=== PATIENT | male | born 1980 ===

== ENCOUNTER 2022-07-03 18:53 | Observation (INO) | payer BC ==
[~2022-07-03] VITALS: Ht 168 cm; Wt 71.2 kg
--- NOTE | 2022-07-03 18:59 | ED Integumentary General ---
General Stated Complaint: LEFT ARM SWOLLEN/RED Source: patient Exam Limitations: no limitations (LEENA WOODS APRN) History of Present Illness Date Seen by Provider: Jul 03, 2022 Time Seen by Provider: 18:58 Initial Comments This is a 42-year-old Swedish-speaking male who presented to ER from [facility] for concerns of worsening cellulitis of his left upper extremity. For the past couple days he has been treated outpatient for cellulitis of his left arm, he was prescribed Bactrim twice a day on 07/01/22 with Mupirocin ointment. He had follow-up yesterday and was given a shot of Rocephin as he had persistent erythema and swelling. He was reevaluated today and he had diffuse erythema and swelling throughout his entire arm up to his mid bicep. They referred him to the emergency department for possible admission. He denies any past medical problems, does not take any current medications other than the antibiotics he was recently prescribed. No fever, chills, nausea, vomiting, diarrhea, abdominal pain. (LEENA WOODS APRN) Allergies and Home Medications Allergies Coded Allergies: No Known Drug Allergies (Unverified , 07/03/22) Patient Home Medication List Home Medication List Reviewed: Yes (LEENA WOODS APRN) Mupirocin (Mupirocin) 2 % Oint...g., (Reported) Entered as Reported by: AMANDEEP DESIR on 07/03/221912 Last Action: New Order Naproxen (Naproxen) 500 Mg Tablet, (Reported) Entered as Reported by: AMANDEEP DESIR on 07/03/221912 Last Action: New Order Sulfamethoxazole/Trimethoprim (Sulfamethoxazole-Tmp Susp 200MG/40MG/5ML) 800 Mg- 160 Mg/20 Ml Oral.susp, (Reported) Entered as Reported by: AMANDEEP DESIR on 07/03/221912 Last Action: New Order Review of Systems Review of Systems Constitutional: no symptoms reported EENTM: no symptoms reported Respiratory: no symptoms reported Cardiovascular: no symptoms reported Gastrointestinal: no symptoms reported Genitourinary: no symptoms reported Musculoskeletal: no symptoms reported Psychiatric/Neurological: See HPI Endocrine: No Symptoms Reported Hematologic/Lymphatic: No Symptoms Reported (LEENA WOODS APRN) Physical Exam Vital Signs Vital Signs - First Documented 07/03/22 19:05 Temp 37.9 Pulse 124 Resp 18 B/P (MAP) 146/83 (104) Pulse Ox 98 O2 Delivery Room Air (NATALYA,CATHY K DO) Vital Signs Capillary Refill : (LEENA WOODS APRN) General Appearance: WD/WN, no apparent distress HEENT: PERRL/EOMI, normal ENT inspection, pharynx normal Neck: full range of motion, normal inspection Cardiovascular: regular rate, rhythm, no murmur Respiratory: lungs clear, normal breath sounds, no respiratory distress, no accessory muscle use Gastrointestinal: normal bowel sounds, non tender, soft Extremities: inflammation, swelling, other (diffuse swelling, erythema, and warmth to left upper extremity. Moist desquamation of left elbow, clear drainage ) Neurologic/Psychiatric: no motor/sensory deficits, alert, normal mood/affect, oriented x 3 Skin: normal color, warm/dry Skin Problem Location: upper extremities (LUE) Skin Problem Character: swelling, tenderness, warm Lymphatic: no adenopathy; No axilla node tender (L) (LEENA WOODS APRN) Progress/Results/Core Measures Results/Orders Lab Results Laboratory Tests Test 07/03/22 19:20 07/03/22 19:36 Range/Units White Blood Count 19.3 H 4.3-11.0 10^3/uL Red Blood Count 3.70 L 4.30-5.52 10^6/uL Hemoglobin 11.7 L 13.3-17.7 g/dL Hematocrit 34 L 40-54 % Mean Corpuscular Volume 92 80-99 fL Mean Corpuscular Hemoglobin 32 25-34 pg Mean Corpuscular Hemoglobin Concent 35 32-36 g/dL Red Cell Distribution Width 12.7 10.0-14.5 % Platelet Count 289 130-400 10^3/uL Mean Platelet Volume 10.2 9.0-12.2 fL Immature Granulocyte % (Auto) 3 % Neutrophils (%) (Auto) 76 H 42-75 % Lymphocytes (%) (Auto) 9 L 12-44 % Monocytes (%) (Auto) 11 0-12 % Eosinophils (%) (Auto) 1 0-10 % Basophils (%) (Auto) 0 0-10 % Neutrophils # (Auto) 14.7 H 1.8-7.8 10^3/uL Lymphocytes # (Auto) 1.7 1.0-4.0 10^3/uL Monocytes # (Auto) 2.1 H 0.0-1.0 10^3/uL Eosinophils # (Auto) 0.1 0.0-0.3 10^3/uL Basophils # (Auto) 0.1 0.0-0.1 10^3/uL Immature Granulocyte # (Auto) 0.6 H 0.0-0.1 10^3/uL Neutrophils % (Manual) 81 % Lymphocytes % (Manual) 8 % Monocytes % (Manual) 11 % Blood Morphology Comment NORMAL Prothrombin Time 15.0 H 12.2-14.7 SEC INR Comment 1.1 0.8-1.4 Activated Partial Thromboplast Time 41 H 24-35 SEC Sodium Level 137 135-145 MMOL/L Potassium Level 3.7 3.6-5.0 MMOL/L Chloride Level 104 98-107 MMOL/L Carbon Dioxide Level 17 L 21-32 MMOL/L Anion Gap 16 H 5-14 MMOL/L Blood Urea Nitrogen 8 7-18 MG/DL Creatinine 0.72 0.60-1.30 MG/DL Estimat Glomerular Filtration Rate 118 BUN/Creatinine Ratio 11 Glucose Level 122 H 70-105 MG/DL Lactic Acid Level 0.83 0.50-2.00 MMOL/L Calcium Level 9.4 8.5-10.1 MG/DL Corrected Calcium 9.7 8.5-10.1 MG/DL Total Bilirubin 0.8 0.1-1.0 MG/DL Aspartate Amino Transf (AST/SGOT) 86 H 5-34 U/L Alanine Aminotransferase (ALT/SGPT) 93 H 0-55 U/L Alkaline Phosphatase 167 H 40-136 U/L Total Protein 7.6 6.4-8.2 GM/DL Albumin 3.6 3.2-4.5 GM/DL Urine Opiates Screen NEGATIVE NEGATIVE Urine Oxycodone Screen NEGATIVE NEGATIVE Urine Methadone Screen NEGATIVE NEGATIVE Urine Propoxyphene Screen NEGATIVE NEGATIVE Urine Barbiturates Screen NEGATIVE NEGATIVE Ur Tricyclic Antidepressants Screen NEGATIVE NEGATIVE Urine Phencyclidine Screen NEGATIVE NEGATIVE Urine Amphetamines Screen NEGATIVE NEGATIVE Urine Methamphetamines Screen NEGATIVE NEGATIVE Urine Benzodiazepines Screen POSITIVE H NEGATIVE Urine Cocaine Screen NEGATIVE NEGATIVE Urine Cannabinoids Screen NEGATIVE NEGATIVE Urine Color DARK YELLOW Urine Clarity CLEAR Urine pH 6.0 5-9 Urine Specific [place] 1.025 H 1.016-1.022 Urine Protein 2+ H NEGATIVE Urine Glucose (UA) TRACE H NEGATIVE Urine Ketones NEGATIVE NEGATIVE Urine Nitrite NEGATIVE NEGATIVE Urine Bilirubin 1+ H NEGATIVE Urine Urobilinogen >=8.0 < = 1.0 MG/DL Urine Leukocyte Esterase NEGATIVE NEGATIVE Urine RBC (Auto) 1+ H NEGATIVE Urine RBC NONE /HPF Urine WBC 0-2 /HPF Urine Squamous Epithelial Cells NONE /HPF Urine Renal Epithelial Cells NONE /HPF Urine Crystals NONE /LPF Urine Bacteria NEGATIVE /HPF Urine Casts NONE /LPF Urine Mucus NEGATIVE /LPF Urine Culture Indicated CULTURE PENDING Serum Alcohol < 10 <10 MG/DL (CATHY HOANG DO) Micro Results Microbiology 07/03/22 Blood Culture - Preliminary, Resulted No growth 07/03/22 Urine Culture - Final, Complete NO GROWTH 07/03/22 Blood Culture - Preliminary, Resulted No growth (CATHY HOANG DO) Vital Signs/I&O 07/03/22 19:05 Temp 37.9 Pulse 124 Resp 18 B/P (MAP) 146/83 (104) Pulse Ox 98 O2 Delivery Room Air 07/04/22 00:00 Intake Total 100 ml Balance 100 ml (CATHY HOANG DO) Progress Progress Note : Progress Note Patient examined in no acute distress. Initiated sepsis work-up upon arrival. His vital signs are stable. Has been on Bactrim and Rocephin, orders placed for Vancomycin and Zosyn IV. WBC-19.3, lactic within normal limits. Discussed with Dr. Reese, would like surgical consult, admit inpatient for IV antibiotics. Discussed with Dr. Loyd, no further orders. Plan of care reviewed with patient and he is agreeable with plan. (LEENA WOODS STRAP CUTTER) Initial ECG Impression Date: Jul 03, 2022 Initial ECG Impression Time: 19:31 Initial ECG Rate: 117 Initial ECG Rhythm: S.Tach Initial ECG Impression: Normal Initial ECG Comparisson: No Previous ECG Available (LEENA WOODS STRAP CUTTER) Diagnostic Imaging Diagonstic Imaging: Xray Plain Films/CT/US/NM/MRI: chest Comments [facility] [place], [place] NAME: ORALIA ZARATE [facility] REC#: [id number] PT STATUS: REG ER : 1980 PHYSICIAN: LEENA WOODS STRAP CUTTER ADMIT DATE: 07/03/22/ER Draft Date of Exam:07/03/22 CHEST 1 VIEW, AP/PA ONLY INDICATION: Sepsis. EXAMINATION: Chest, 07/03/2022. FINDINGS: The cardiomediastinal silhouette is unremarkable. The pulmonary vasculature is within normal limits. The lungs and pleural spaces are clear. IMPRESSION: No evidence of an acute cardiopulmonary process. Dictated on workstation # [id number] Dict: 07/03/222022 Trans: 07/03/222027 PJ [id number] Interpreted by: AMRCO A SALCEDO MD Electronically signed by: DiaZeolifenstic Imaging: Xray Comments [facility] [place] [place] [facility] [id number] PT STATUS: ADM IN : 1980 PHYSICIAN: LEENA WOODS STRAP CUTTER ADMIT DATE: 07/03/22/[facility] Draft Date of Exam:07/03/22 FOREARM, LEFT, 2 VIEWS INDICATION: Redness and swelling. EXAMINATION: Left forearm, 07/03/2022. FINDINGS: 2 views of the forearm. There is soft tissue swelling about the posterior elbow. No joint effusion. No fracture or dislocation. No destructive change within the osseous structures. IMPRESSION: Soft tissue swelling of posterior elbow. Osseous structures unremarkable. Dictated on workstation # [id number] Dict: 07/03/222124 Trans: 07/03/222128 [facility] [id number] Interpreted by: MARCO A SALCEDO MD Electronically signed by: Diagonstic Imaging: Xray Comments [facility] [place], [place] NAME[facility] REC#: [id number] PT STATUS: REG ER : 1980 PHYSICIAN: LEENA WOODS STRAP CUTTER ADMIT DATE: 07/03/22/ER Draft Date of Exam:07/03/22 HUMERUS, LEFT, 2 VIEWS INDICATION: Redness and swelling. EXAMINATION: Left humerus, 07/03/2022. FINDINGS: 2 views of the humerus. There is no evidence for an acute fracture or dislocation. The joint spaces are well maintained. There is no significant soft tissue swelling. IMPRESSION: No acute process. Dictated on workstation # [id number] Dict: 07/03/222122 Trans: 07/03/222124 [facility] [id number] Interpreted by: MARCO A SALCEDO MD Electronically signed by: Reviewed: Reviewed by Me (LEENA WOODS APRN) Departure Communication (Admissions) Time/Spoke to Admitting Phy: 20:12 Dr. Reese Time/Spoke to Consulting Phy: 20:21 Dr. Loyd (LEENA WOODS APRN) Impression Primary Impression: Cellulitis of left arm Disposition: ADMITTED INPATIENT Condition: Stable Admissions Decision to Admit Reason: Admit from ER (General) Decision to Admit/Date: Jul 03, 2022 Time/Decision to Admit Time: 20:00 (LEENA WOODS APRN) Departure-Patient Inst. Referrals: [facility] (PCP/Family) Primary Care Physician ATTENDING PHYSICIAN NOTE: I WAS PHYSICALLY PRESENT ER PHYSICIAN, BUT I WAS NOT INVOLVED IN ANY DECISION MAKING OR ANY CARE OF THIS PATIENT, AND I AM NOT COLLABORATING PHYSICIAN. (CATHY HOANG DO) LEENA WOODS APRN Jul 03, 2022 18:58 CATHY HOANG DO Jul 04, 2022 19:00
[2022-07-03] MEDS ORDERED: SULF20OR6 (19:13)
[2022-07-03] MEDS ORDERED: NAPR-915 PO (19:13)
[2022-07-03] MEDS ORDERED: MUPI22OI2 TOP (19:13)
[2022-07-03] MEDS ORDERED: VANCOMYCIN INJECTION 1,000 MG in NS (IVPB) 250 ML IV ONE (19:30)
[2022-07-03] MEDS ORDERED: PIPERACILLIN SODIUM/TAZOBACTAM 4.5 GM in NS (IVPB) 100 ML IV ONE (19:30)
[2022-07-03 19:41] LABS: BASOPHILS # (AUTO) 0.1 10^3/uL (0.0-0.1); BASOPHILS % (AUTO) 0 % (0-10); EOSINOPHILS # (AUTO) 0.1 10^3/uL (0.0-0.3); EOSINOPHILS % (AUTO) 1 % (0-10); HEMATOCRIT 34 % (40-54); HEMOGLOBIN 11.7 g/dL (13.3-17.7); LYMPHOCYTES # (AUTO) 1.7 10^3/uL (1.0-4.0); LYMPHOCYTES % (AUTO) 9 % (12-44); MEAN CORPUSCULAR HEMOGLOBIN 32 pg (25-34); MEAN CORPUSCULAR HGB CONC 35 g/dL (32-36); MEAN CORPUSCULAR VOLUME 92 fL (80-99); MEAN PLATELET VOLUME 10.2 fL (9.0-12.2); MONOCYTES # (AUTO) 2.1 10^3/uL (0.0-1.0); MONOCYTES % (AUTO) 11 % (0-12); NEUTROPHILS # (AUTO) 14.7 10^3/uL (1.8-7.8); NEUTROPHILS % (AUTO) 76 % (42-75); PLATELET COUNT 289 10^3/uL (130-400); WHITE BLOOD COUNT 19.3 10^3/uL (4.3-11.0)
[2022-07-03 19:43] LABS: BILIRUBIN,URINE 1+ (NEGATIVE); CLARITY,URINE CLEAR; COLOR,URINE DARK YELLOW; GLUCOSE, URINE (UA) TRACE (NEGATIVE); KETONES,URINE NEGATIVE (NEGATIVE); LEUKOCYTE ESTERASE ,URINE NEGATIVE (NEGATIVE); NITRITE,URINE NEGATIVE (NEGATIVE); PROTEIN,URINE 2+ (NEGATIVE)
[2022-07-03 19:48] LABS: INR 1.1 (0.8-1.4)
[2022-07-03 19:51] LABS: BACTERIA,URINE NEGATIVE /HPF; WBC,URINE 0-2 /HPF
[2022-07-03 20:01] LABS: LYMPHOCYTES % (MANUAL) 8 %; MONOCYTES % (MANUAL) 11 %; NEUTROPHILS % (MANUAL) 81 %; RBC MORPH NORMAL
[2022-07-03 20:13] LABS: ALBUMIN 3.6 GM/DL (3.2-4.5); BILIRUBIN,TOTAL 0.8 MG/DL (0.1-1.0); CALCIUM 9.4 MG/DL (8.5-10.1); CREATININE SERUM 0.72 MG/DL (0.60-1.30); POTASSIUM 3.7 MMOL/L (3.6-5.0); TOTAL PROTEIN 7.6 GM/DL (6.4-8.2)
--- NOTE | 2022-07-03 20:29 | Diagnostic Imaging Report ---
INDICATION: Sepsis. EXAMINATION: Chest, 07/03/2022. FINDINGS: The cardiomediastinal silhouette is unremarkable. The pulmonary vasculature is within normal limits. The lungs and pleural spaces are clear. IMPRESSION: No evidence of an acute cardiopulmonary process. Dictated by: Dictated on workstation # [id number]
[2022-07-03 20:58] LABS: AMPHETAMINE SCREEN, URINE NEGATIVE (NEGATIVE); BARBITURATE SCREEN URINE NEGATIVE (NEGATIVE); BENZODIAZEPINES SCREEN URINE POSITIVE (NEGATIVE); CANNABINOID SCREEN, URINE NEGATIVE (NEGATIVE); COCAINE SCREEN URINE NEGATIVE (NEGATIVE); METHADONE STAT NEGATIVE (NEGATIVE); OPIATE SCREEN URINE NEGATIVE (NEGATIVE); OXYCODONE STAT NEGATIVE (NEGATIVE); PROPOXYPHENE STAT NEGATIVE (NEGATIVE); TRICYCLIC ANTIDEPRESSANTS SCRE NEGATIVE (NEGATIVE)
--- NOTE | 2022-07-03 21:26 | Diagnostic Imaging Report ---
INDICATION: Redness and swelling. EXAMINATION: Left humerus, 07/03/2022. FINDINGS: 2 views of the humerus. There is no evidence for an acute fracture or dislocation. The joint spaces are well maintained. There is no significant soft tissue swelling. IMPRESSION: No acute process. Dictated by: Dictated on workstation # [id number]
--- NOTE | 2022-07-03 21:30 | Diagnostic Imaging Report ---
INDICATION: Redness and swelling. EXAMINATION: Left forearm, 07/03/2022. FINDINGS: 2 views of the forearm. There is soft tissue swelling about the posterior elbow. No joint effusion. No fracture or dislocation. No destructive change within the osseous structures. IMPRESSION: Soft tissue swelling of posterior elbow. Osseous structures unremarkable. Dictated by: Dictated on workstation # [id number]
[2022-07-03] MEDS ORDERED: ACETAMINOPHEN 325 MG TABLET PO PRN (21:45)
[2022-07-03] MEDS ORDERED: ONDANSETRON 4 MG/2 ML (SDV) Z0FRAN IV PRN (21:45)
[2022-07-03] MEDS ORDERED: MILK OF MAGNESIA 400 MG/5 ML 30 ML UDC PO PRN (21:45)
[2022-07-03] MEDS ORDERED: LACTULOSE SYRUP 10GM/15ML (ENULOSE) 30ML UDC PO PRN (21:45)
[2022-07-03] MEDS ORDERED: CALCIUM CARBONATE 500 MG (TUMS) TAB.CHEW PO PRN (21:45)
[2022-07-03] MEDS ORDERED: morphine IMMEDIATE RELEASE 15 MG TABLET PO PRN (21:45)
[2022-07-03] MEDS ORDERED: MELATONIN 3 MG TABLET PO PRN (21:45)
[2022-07-03] MEDS ORDERED: polyethylene glycoL POWDER 17 GM (MIRALAX) PACK PO PRN (21:45)
[2022-07-03] MEDS ORDERED: cloNIDine 0.1 MG (CATAPRES) TAB PO PRN (21:45)
[2022-07-03] MEDS ORDERED: ONDANSETRON 4 MG (ZOFRAN) ORAL DISSOLVE TAB PO PRN (21:45)
[2022-07-03] MEDS ORDERED: ANTACID SUSP 30 ML UDC (MYLANTA) PO PRN (21:45)
[2022-07-03] MEDS ORDERED: BISACODYL 10 MG SUPP (DULCOLAX) PR PRN (21:45)
[2022-07-03] MEDS ORDERED: VANCOMYCIN INJECTION 0.1 MG in NS (IVPB) 250 ML IV SCH (21:45)
[2022-07-03] MEDS ORDERED: LORazepam 0.5 MG (ATIVAN) TABLET PO PRN (21:45)
[2022-07-03] MEDS ORDERED: diphenhydrAMINE 25 MG TAB (BENADRYL) PO PRN (21:45)
[2022-07-03] MEDS ORDERED: diphenhydrAMINE 50 MG/ML INJ (BENADRYL) IVP PRN (21:45)
[2022-07-03] MEDS ORDERED: HYDROmorphone 2 MG/ML VIAL (DILAUDID) IV PRN (21:45)
[2022-07-03 21:51] VITALS: BP 127/65
[2022-07-03] MEDS ORDERED: NS IV 1000 ML 1,000 ML ONE (22:02)
[2022-07-03] MEDS: NS IV 1000 ML 1,000 ML IV SCH (22:08)
[2022-07-03] MEDS ORDERED: VANCOMYCIN 500 MG/NS 100 ML IV ONE ×2 (22:15)
[2022-07-03] MEDS: ENOXAPARIN 40 MG/0.4 ML (LOVENOX) SYR SC SCH (22:39)
[2022-07-04] VITALS: BP 121/63
[2022-07-04] MEDS: PIPERACILLIN SODIUM/TAZOBACTAM 4.5 GM in NS (IVPB) 100 ML IV SCH ×3 (03:06→17:05)
[2022-07-04 04:23] VITALS: BP 112/67
[2022-07-04] MEDS: VANCOMYCIN 1 GM/NS 250 ML IVPB IV SCH ×6 (05:00→23:19)
[2022-07-04] MEDS: NS IV 1000 ML 1,000 ML IV SCH ×3 (05:01→23:21)
[2022-07-04 06:00] LABS: BASOPHILS # (AUTO) 0.1 10^3/uL (0.0-0.1); BASOPHILS % (AUTO) 1 % (0-10); EOSINOPHILS # (AUTO) 0.1 10^3/uL (0.0-0.3); EOSINOPHILS % (AUTO) 1 % (0-10); HEMATOCRIT 34 % (40-54); HEMOGLOBIN 11.4 g/dL (13.3-17.7); LYMPHOCYTES # (AUTO) 1.6 10^3/uL (1.0-4.0); LYMPHOCYTES % (AUTO) 9 % (12-44); MEAN CORPUSCULAR HEMOGLOBIN 32 pg (25-34); MEAN CORPUSCULAR HGB CONC 34 g/dL (32-36); MEAN CORPUSCULAR VOLUME 94 fL (80-99); MEAN PLATELET VOLUME 9.7 fL (9.0-12.2); MONOCYTES # (AUTO) 1.7 10^3/uL (0.0-1.0); MONOCYTES % (AUTO) 10 % (0-12); NEUTROPHILS # (AUTO) 13.1 10^3/uL (1.8-7.8); NEUTROPHILS % (AUTO) 75 % (42-75); PLATELET COUNT 320 10^3/uL (130-400); WHITE BLOOD COUNT 17.4 10^3/uL (4.3-11.0)
[2022-07-04 06:18] LABS: ALBUMIN 3.4 GM/DL (3.2-4.5)
[2022-07-04 06:20] LABS: CALCIUM 9.2 MG/DL (8.5-10.1)
[2022-07-04 06:21] LABS: TOTAL PROTEIN 7.2 GM/DL (6.4-8.2)
[2022-07-04 06:25] LABS: CREATININE SERUM 0.65 MG/DL (0.60-1.30)
[2022-07-04 08:01] VITALS: BP 124/69
[2022-07-04] MEDS: DOCUSATE SODIUM 100 MG (COLACE) CAP PO SCH ×2 (09:05→22:40)
[2022-07-04] MEDS: SENNOSIDES 8.6 MG (SENOKOT) TAB PO SCH ×2 (09:06→22:42)
[2022-07-04 11:25] VITALS: BP 127/70
[2022-07-04 12:08] LABS: ABG BASE EXCESS -2.9 MMOL/L (-2.5-2.5); ABG OXYGEN SATURATION 97 % (94-100); ABG PCO2 37 MMHG (35-45); ABG PH 7.38 (7.37-7.43); ABG PO2 74 MMHG (79-93); ABG TCO2 22.5 MMOL/L (21.0-31.0); ALLENS TEST YES-POS
[2022-07-04 12:09] LABS: INSPIRED O2 ROOM AIR; PATIENT TEMP 36.6; VENTILATOR NO
--- NOTE | 2022-07-04 13:30 | History & Physical-Hospitalist ---
ARASH BILL 07/04/22 1330: History of Present Illness HPI/Chief Complaint Patient is 42 y/o sami speaking M who presents for worsening LUE cellulitis. 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 He states he was getting some outpatient treatment for this infection with Bactrim and Rocephin since 07/01. He decided to come to the ER because the LUE started becoming more swollen and draining large amounts of fluid. He also reports having a fever at that time. Currently he has no other complaints. He denies any other past medical history and does not take any other home medications. AB. Liver Enzymes elevated. XR of the left upper extremity shows only soft tissue swelling. CXR was unremarkable. Surgery Consulted - would like to continue with conservative treatment. Source: patient Exam Limitations: no limitations Date Seen 07/04/22 Time Seen by a Provider: 12:00 Attending Physician [place] PCP Admitting Physician: Kim Reese DO Attending Physician: Kim Reese DO Referring Physician Date of Admission Jul 03, 2022 at 21:07 Home Medications & Allergies Home Medications Reviewed patient Home Medication Reconciliation performed by pharmacy medication reconciliations tissue recovery technician and/or nursing. Patients Allergies have been reviewed. Allergies Allergies Coded Allergies No Known Drug Allergies (Unverified07/03/22) Past Qfqhwlv-Kiniym-Jayoep Hx Patient Social History Tobacco Use?: No Substance use?: No Alcohol Use?: Yes Alcohol Frequency: Once in a while Pt feels they are or have been: No Immunizations Up To Date First/Initial COVID19 Vaccinat: none Tetanus Booster (TDap): Unknown Current Status Advance Directives: No Communicates: Verbally Primary Language: Nauruan Preferred Spoken Language: Nauruan Is interpretation needed?: Patient declined Implanted or [employer] D: None Review of Systems Constitutional: No chills, No fever Respiratory: No cough, No short of breath Cardiovascular: No chest pain Musculoskeletal: No joint pain, No muscle pain Skin: other (drainage from the left upper extremity ) Physical Exam Physical Exam Vital Signs Vital Signs - First Documented 07/03/22 19:05 Temp 37.9 Pulse 124 Resp 18 B/P (MAP) 146/83 (104) Pulse Ox 98 O2 Delivery Room Air Capillary Refill : Less Than 3 Seconds Height, Weight, BMI Height: '" Weight: lbs. oz. kg; 25.15 BMI Method: General Appearance: No Apparent Distress, WD/WN HEENT: Moist Mucous Membranes Respiratory: Chest Non Tender, No Accessory Muscle Use, No Respiratory Distress Cardiovascular: Regular Rate, Rhythm, No Murmur Extremity: Swelling (LUE with erythema and drainage) Neurologic/Psychiatric: Alert, Normal Mood/Affect Results Results/Procedures Labs Laboratory Tests 07/03/22 19:20 07/04/22 05:45 Patient resulted labs reviewed. Assessment/Plan Assessment and Plan Assessment: LUE Cellulitis Elevated Liver Enzymes Leukocytosis Plan: IV Vancomycin IV Zosyn IVF GGT Lab Hepatitis Screen Consider Abdominal US Continue to monitor vitals and labs REESEKIM DO 07/05/22 0525: History of Present Illness HPI/Chief Complaint CC: Left arm cellulitis HPI: This is a 42yoHM who presents to the ER with left arm pain and swelling and failing Doxy. Severity of the infection prompted Dr Loyd consult. Source: patient Exam Limitations: no limitations Past Wytkqhv-Mohxkv-Dzfuym Hx Patient Social History Marrital Status: single Employed/Student: employed Smoking Status: Never a Smoker Alcohol Use?: Yes Review of Systems Constitutional: see HPI Physical Exam Physical Exam General Appearance: No Apparent Distress Eyes: Right Eye Normal Inspection, Right Eye PERRL HEENT: PERRL/EOMI, Normal ENT Inspection, Pharynx Normal, Moist Mucous Membran es Neck: Full Range of Motion, Normal Inspection, Non Tender Respiratory: Chest Non Tender, Lungs Clear, Normal Breath Sounds, No Accessory Muscle Use, No Respiratory Distress Cardiovascular: Regular Rate, Rhythm, No Edema, No Gallop, No JVD, No Murmur, Normal Peripheral Pulses Gastrointestinal: Normal Bowel Sounds, No Organomegaly, No Pulsatile Mass, Non Tender, Soft Back: Normal Inspection, No CVA Tenderness, No Vertebral Tenderness Extremity: Normal Capillary Refill, Normal Range of Motion, Non Tender, No Calf Tenderness, No Pedal Edema, Swelling (LUE with erythema and drainage) Neurologic/Psychiatric: Alert, Oriented x3, No Motor/Sensory Deficits, Normal Mood/Affect Skin: Normal Color, Warm/Dry, Rash (left arm edema) Lymphatic: No Adenopathy Assessment/Plan Admission Diagnosis Assessment: Left upper extremity cellulitis severe Plan: IV abx IVF Dr Loyd appreciated Admission Status: Inpatient Order (span 2 midnights) Reason for Inpatient Admission: cellulitis Supervisory-Addendum Brief Verification & Attestation Participated in pt care: history, MDM, physical Personally performed: exam, history, MDM, supervision of care Care discussed with: Medical Student Procedures: n/a Results interpretation: Verified all documentation Verification and Attestation of Medical Student E/M Service A medical student performed and documented this service in my presence. I reviewed and verified all information documented by the medical student and made modifications to such information, when appropriate. I personally performed the physical exam and medical decision making. Kim Reese, Jul 05, 2022,05:25 ARASH BILL Jul 04, 2022 13:30 KIM REESE DO Jul 05, 2022 05:25
[2022-07-04 15:17] VITALS: BP 148/85
--- NOTE | 2022-07-04 15:17 | CONSULTATION REPORT ---
DATE OF SERVICE: 07/04/2022 ADMITTING PHYSICIAN: Dr. Reese. HISTORY OF PRESENT ILLNESS: The patient is a 42-year-old male who presented to the Emergency Department with left upper extremity swelling and pain. He reports that around the area of the elbow, he felt he had some form of insect bite, which was pruritic, and he began itching the area. He then began noticing redness, swelling as well as pain along the elbow as well as moving both proximally and distally. He was seen at [facility] and was started on Bactrim and Rocephin; however, the redness, swelling and pain did worsen. The patient was admitted, started on IV antibiotics. Upon examination today, the compartments upon palpation are soft. There is full range of motion of all the fingers. No focal deficits. No neuropathy as well as palpable pulses throughout. PAST MEDICAL HISTORY: None. PAST SURGICAL HISTORY: None. ALLERGIES: NO KNOWN DRUG ALLERGIES. MEDICATIONS: Bactrim and Rocephin. SOCIAL HISTORY: Negative smoke. Does drink alcohol on a daily basis. FAMILY HISTORY: Noncontributory. VITAL SIGNS: Temperature 36.6, blood pressure 127/70, pulse 98, respirations 18, pulse ox 96% on room air. REVIEW OF SYSTEMS: Well-nourished male, currently in no acute distress. He is not experiencing any shortness of breath or difficulty breathing. No chest pain, palpitations, diaphoresis. He does have intermittent episodes of nausea usually after eating; however, no vomiting. No hematemesis, no coffee ground emesis. He does not report any diarrhea nor constipation as well as no red blood per rectum nor any dark tarry stools. He does have a palpable bulge and pain in the right inguinal region, which he states he has had for several years, but this has grown larger in size. No fever, chills, no recent inadvertent weight loss. All other review of systems negative. PHYSICAL EXAMINATION: CHEST: Clear. Good breath sounds bilaterally. HEART: Regular, no murmurs. EXTREMITIES: No lower extremity edema, negative Homans sign. HEENT: No scleral icterus. NECK: No cervical lymphadenopathy. ABDOMEN: Soft, nondistended. There is mild discomfort upon deep palpation of the epigastric region as well as the right upper abdominal quadrant. No peritoneal signs. There is a reducible an incarcerated right inguinal hernia, which is slightly tender to palpation. SKIN: Along the left upper extremity, along the elbow distribution is redness and swelling. There is no fluctuance to indicate any abscess. The compartment pressures are soft and pliable, and he has no motor deficits as well as no neuropathy and palpable pulses distally. LABORATORY DATA: WBC 17.4, hemoglobin 11.4, hematocrit 34, platelets 320. BUN 6, creatinine 0.65, AST 45, ALT 76, alkaline phosphatase 142. ASSESSMENT AND PLAN: A 42-year-old male with cellulitis of the left upper extremity, which appears to be responding well to IV Zosyn and vancomycin, which we will recommend continuing as well as elevation of the left upper extremity. For now, there is no fluctuance to indicate any abscess. He also does have a multitude of other issues, which also include early satiety and nausea after eating meals. This may represent an undiagnosed gastritis. He does have one known risk factor, which is drinking alcohol on a daily basis, which he was instructed to decrease if not stop altogether. This issue with early satiety as well as nausea after eating meals as well as elevated liver function enzymes may also be related to biliary dyskinesia and we will recommend proceeding with an outpatient HIDA scan and evaluation in the ejection fraction for potential biliary dyskinesia. He also does have a symptomatic incarcerated right inguinal hernia, which we will also need to be addressed at some point. Once the infection is cleared, we will proceed with further testing including an EGD as well as a HIDA scan; however, we will also schedule him for a laparoscopic right inguinal hernia repair with mesh. Job ID: [id number] DocumentID: [id number] Dictated Date: 07/04/2022 15:00:20 Truck Driver Rubbish Collector Date: 07/04/2022 15:17:00 Dictated By: MATTIE PEOPLES MD
--- NOTE | 2022-07-04 17:01 | Diagnostic Imaging Report ---
PROCEDURE: US Abdomen, limited. TECHNIQUE: Multiple real-time grayscale images were obtained over the abdomen in various projections. INDICATION: Elevated liver enzymes. COMPARISON: None. FINDINGS: The pancreas is not well seen due to overlying bowel gas. Imaged portions of the aorta and IVC are unremarkable. The liver is borderline large in size. Echogenicity appears increased. There is no biliary dilatation. No focal hepatic lesions are seen. The main portal vein is hepatopetal. The gallbladder wall appears mildly thickened, but this is likely due to a contracted gallbladder as the patient was not n.p.o. No stones are seen. The common bile duct measures 2 mm. Sonographic Alexander's sign is negative. The right kidney measures 11.5 cm in length. There is no hydronephrosis. No free fluid is seen. IMPRESSION: 1. Hepatic steatosis. 2. Contracted gallbladder. No findings of cholelithiasis or cholecystitis. Dictated by: Dictated on workstation # [id number]
[2022-07-04 19:04] VITALS: BP 158/86
[2022-07-04] MEDS ORDERED: TROUGH ORDER-PHARMACY XX ONE (20:00)
[2022-07-04] MEDS: ENOXAPARIN 40 MG/0.4 ML (LOVENOX) SYR SC SCH (22:39)
[2022-07-04 23:17] LABS: HEPATITIS C ANTIBODY C Non-Reactive (Non-Reactive)
[2022-07-05] VITALS: BP 117/74
[2022-07-05] MEDS: PIPERACILLIN SODIUM/TAZOBACTAM 4.5 GM in NS (IVPB) 100 ML IV SCH ×2 (02:38→10:20)
[2022-07-05 03:49] VITALS: BP 130/82
[2022-07-05] MEDS: VANCOMYCIN 1 GM/NS 250 ML IVPB IV SCH ×2 (05:08)
[2022-07-05 05:47] LABS: BASOPHILS # (AUTO) 0.1 10^3/uL (0.0-0.1); BASOPHILS % (AUTO) 1 % (0-10); EOSINOPHILS # (AUTO) 0.1 10^3/uL (0.0-0.3); EOSINOPHILS % (AUTO) 1 % (0-10); HEMATOCRIT 32 % (40-54); HEMOGLOBIN 10.8 g/dL (13.3-17.7); LYMPHOCYTES % (AUTO) 18 % (12-44); MEAN CORPUSCULAR HEMOGLOBIN 32 pg (25-34); MEAN CORPUSCULAR HGB CONC 34 g/dL (32-36); MEAN CORPUSCULAR VOLUME 93 fL (80-99); MEAN PLATELET VOLUME 10.9 fL (9.0-12.2); MONOCYTES # (AUTO) 0.8 10^3/uL (0.0-1.0); MONOCYTES % (AUTO) 8 % (0-12); NEUTROPHILS # (AUTO) 6.8 10^3/uL (1.8-7.8); NEUTROPHILS % (AUTO) 61 % (42-75); PLATELET COUNT 299 10^3/uL (130-400); WHITE BLOOD COUNT 11.2 10^3/uL (4.3-11.0)
[2022-07-05 06:09] LABS: ALBUMIN 3.1 GM/DL (3.2-4.5); POTASSIUM 4.4 MMOL/L (3.6-5.0)
[2022-07-05 06:11] LABS: TOTAL PROTEIN 6.9 GM/DL (6.4-8.2)
[2022-07-05 06:13] LABS: BILIRUBIN,TOTAL 0.4 MG/DL (0.1-1.0)
[2022-07-05 06:15] LABS: CREATININE SERUM 0.61 MG/DL (0.60-1.30)
[2022-07-05] MEDS: NS IV 1000 ML 1,000 ML IV SCH (06:41)
[2022-07-05 08:08] VITALS: BP 136/89
[2022-07-05] MEDS: DOCUSATE SODIUM 100 MG (COLACE) CAP PO SCH (10:20)
[2022-07-05] MEDS: SENNOSIDES 8.6 MG (SENOKOT) TAB PO SCH (10:20)
[2022-07-05 11:01] VITALS: BP 128/84
[2022-07-05] MEDS ORDERED: SULF-221 PO (11:34)
--- NOTE | 2022-07-05 12:14 | Progress Note - Hospitalist ---
DAXA FISHER 07/05/22 1214: Subjective HPI/CC On Admission Date Seen by Provider: Jul 05, 2022 Time Seen by Provider: 08:23 CC: Left arm cellulitis HPI: This is a 42yoHM who presents to the ER with left arm pain and swelling and failing Doxy. Severity of the infection prompted Dr Loyd consult. Subjective/Events-last exam Patient reports he is doing well today. Having pain on his left elbow, 01/20. Patient has been consulted by Dr. Loyd, recommended outpatient EGD and HIDA scan for possible gastritis and/or biliary dyskinesia. Review of Systems General: No Chills, No Night Sweats, No Fatigue HEENT: No Head Aches, No Visual Changes Pulmonary: No Dyspnea, No Cough Cardiovascular: No: Chest Pain, Palpitations, Edema Gastrointestinal: No: Nausea, Vomiting, Abdominal Pain Genitourinary: No Dysuria, No Frequency, No Incontinence Musculoskeletal: other (left elbow pain (01/20)) Neurological: No: Weakness, Numbness, Change in speech Focused Exam Lactate Level 07/03/22 19:20: Lactic Acid Level 0.83 Objective Exam Vital Signs Vital Signs Date Time Temp Pulse Resp B/P (MAP) Pulse Ox O2 Delivery O2 Flow Rate FiO2 07/05/22 11:01 36.4 79 18 128/84 (99) 97 Room Air Capillary Refill : Less Than 3 Seconds General Appearance: No Apparent Distress, WD/WN HEENT: PERRL/EOMI, Moist Mucous Membranes Respiratory: Chest Non Tender, Lungs Clear, Normal Breath Sounds, No Accessory Muscle Use, No Respiratory Distress Cardiovascular: Regular Rate, Rhythm, No Edema, No Gallop, No JVD, No Murmur, Normal Peripheral Pulses Extremity: Swelling (LUE with erythema and serosanguinos drainage) Neurologic/Psychiatric: Alert, Oriented x3, Normal Mood/Affect Skin: Erythema (LUE with erythema and serosanguinos drainage) Lymphatic: No Adenopathy (Cervical and Supraclavicular) Results/Procedures Lab Laboratory Tests 07/05/22 05:44 Patient resulted labs reviewed. Assessment/Plan Assessment and Plan Assess & Plan/Chief Complaint Assessment: Left upper extremity cellulitis severe Plan: Discontinue IV fluids Continue abx ambulate Dr. Loyd appreciated, outpatient EGD and HIDA scan for possible gastritis and/or biliary dyskinesia. KIM FARAH DO 07/06/22 0745: Supervisory-Addendum Brief Verification & Attestation Participated in pt care: history, MDM, physical Personally performed: exam, history, MDM, supervision of care Care discussed with: Medical Student Procedures: n/a Results interpretation: Verified all documentation Verification and Attestation of Medical Student E/M Service A medical student performed and documented this service in my presence. I reviewed and verified all information documented by the medical student and made modifications to such information, when appropriate. I personally performed the physical exam and medical decision making. Kim Farah, Jul 06, 2022,07:45 DAXA FISHER Jul 05, 2022 12:14 KIM FARAH DO Jul 06, 2022 07:45
[2022-07-05] MEDS ORDERED: VANCOMYCIN 1,250 MG/NS 250 ML IVPB IV SCH ×2 (13:00)
--- NOTE | 2022-07-05 13:21 | Progress Note ---
Subjective Date Seen by a Provider: Jul 05, 2022 Time Seen by a Provider: 13:00 Subjective/Events-last exam doing well. much less edema with spontaneous drainage left elbow. soft compartments. Focused Exam Lactate Level 07/03/22 19:20: Lactic Acid Level 0.83 Objective Exam Vital Signs Date Time Temp Pulse Resp B/P (MAP) Pulse Ox O2 Delivery O2 Flow Rate FiO2 07/05/22 11:01 36.4 79 18 128/84 (99) 97 Room Air 07/05/22 08:08 36.7 69 18 136/89 (105) 98 Room Air 07/05/22 08:00 Room Air 07/05/22 03:49 36.2 90 16 130/82 (98) 99 Room Air 07/05/22 00:00 37.0 84 16 117/74 (88) 98 Room Air 07/04/22 19:04 37.4 88 20 158/86 (110) 98 Room Air 07/04/22 15:17 37.0 87 20 148/85 (106) 98 Room Air I & O 07/05/22 07:00 Intake Total 2940 ml Balance 2940 ml Capillary Refill : Less Than 3 Seconds General Appearance: No Apparent Distress HEENT: PERRL/EOMI Neck: Full Range of Motion Respiratory: Chest Non Tender, Lungs Clear, Normal Breath Sounds Cardiovascular: Regular Rate, Rhythm Gastrointestinal: normal bowel sounds, non tender, soft Extremity: Normal Capillary Refill, Other (much less redness/erythema lt UE with soft compartments) Neurologic/Psychiatric: Alert, Oriented x3 Skin: Normal Color Lymphatic: No Adenopathy Results Lab Laboratory Tests 07/04/22 22:40: Vancomycin Level Trough 5.1L 07/05/22 05:44: White Blood Count 11.2H, Red Blood Count 3.43L, Hemoglobin 10.8L, Hematocrit 32L , Mean Corpuscular Volume 93, Mean Corpuscular Hemoglobin 32, Mean Corpuscular Hemoglobin Concent 34, Red Cell Distribution Width 13.3, Platelet Count 299, Mean Platelet Volume 10.9, Immature Granulocyte % (Auto) 11, Neutrophils (%) (Auto) 61, Lymphocytes (%) (Auto) 18, Monocytes (%) (Auto) 8, Eosinophils (%) (Auto) 1, Basophils (%) (Auto) 1, Neutrophils # (Auto) 6.8, Lymphocytes # (Auto) 2.0, Monocytes # (Auto) 0.8, Eosinophils # (Auto) 0.1, Basophils # (Auto) 0.1, I mmature Granulocyte # (Auto) 1.2H, Sodium Level 142, Potassium Level 4.4, Chloride Level 109H, Carbon Dioxide Level 18L, Anion Gap 15H, Blood Urea Nitrogen 7, Creatinine 0.61, Estimat Glomerular Filtration Rate 124, BUN/Creatinine Ratio 11, Glucose Level 112H, Calcium Level 9.0, Corrected Calcium 9.7, Total Bilirubin 0.4, Aspartate Amino Transf (AST/SGOT) 104H, Alanine Aminotransferase (ALT/SGPT) 140H, Alkaline Phosphatase 153H, Total Protein 6.9, Albumin 3.1L Microbiology 07/03/22 Blood Culture - Preliminary, Resulted No growth 07/03/22 Urine Culture - Final, Complete NO GROWTH Assessment/Plan Assessment/Plan Assess & Plan/Chief Complaint left arm cellulits with spontaneous drainage. ok for home with PO abx. gauze followed by kerlix wrap daily and PRN. f/u in office in one week. MATTIE PEOPLES MD Jul 05, 2022 13:21
[2022-07-05] MEDS ORDERED: AMOX1TAB12 PO (13:25)
[2022-07-05] MEDS ORDERED: CEPH500T PO (13:25)
--- NOTE | 2022-07-05 13:25 | Discharge Summary ---
Discharge Summary Hospital Course Was the Problem List Reviewed?: Yes Problems/Dx: (1) Cellulitis of left arm Hospital Course Date of Admission: Jul 03, 2022 at 21:07 Admission Diagnosis : [facility] Date of Discharge: 07/05/22 Discharge Diagnosis: [ ] Hospital Course: Short course after admitted for left arm cellulitis no evidence of gas production so Dr Loyd consulted placed on broad spectrum abx and patient improved and DC in improved condition Labs and Pending Lab Test: Laboratory Tests 07/04/22 22:40: Vancomycin Level Trough 5.1L 07/05/22 05:44: White Blood Count 11.2H, Red Blood Count 3.43L, Hemoglobin 10.8L, Hematocrit 32L , Mean Corpuscular Volume 93, Mean Corpuscular Hemoglobin 32, Mean Corpuscular Hemoglobin Concent 34, Red Cell Distribution Width 13.3, Platelet Count 299, Mean Platelet Volume 10.9, Immature Granulocyte % (Auto) 11, Neutrophils (%) (Auto) 61, Lymphocytes (%) (Auto) 18, Monocytes (%) (Auto) 8, Eosinophils (%) (Auto) 1, Basophils (%) (Auto) 1, Neutrophils # (Auto) 6.8, Lymphocytes # (Auto) 2.0, Monocytes # (Auto) 0.8, Eosinophils # (Auto) 0.1, Basophils # (Auto) 0.1, Immature Granulocyte # (Auto) 1.2H, Sodium Level 142, Potassium Level 4.4, Chloride Level 109H, Carbon Dioxide Level 18L, Anion Gap 15H, Blood Urea Nitrogen 7, Creatinine 0.61, Estimat Glomerular Filtration Rate 124, BUN/Creatinine Ratio 11, Glucose Level 112H, Calcium Level 9.0, Corrected Calcium 9.7, Total Bilirubin 0.4, Aspartate Amino Transf (AST/SGOT) 104H, Jorge ne Aminotransferase (ALT/SGPT) 140H, Alkaline Phosphatase 153H, Total Protein 6.9, Albumin 3.1L Microbiology 07/03/22 Blood Culture - Preliminary, Resulted No growth 07/03/22 Urine Culture - Final, Complete NO GROWTH Home Meds Active Reported Bactrim Ds Tablet (Sulfamethoxazole/Trimethoprim) 800 Mg-160 Mg Tablet 1 Tab PO BID FILLED 07-01-2022 #01/08 DAY SUPPLY Naproxen 500 Mg Tablet 500 Mg PO BID PRN Mupirocin 2 % Oint...g. 1 Applic TOP BID FILLED 07-01-2022 AND USE FOR 7 DAYS Assessment/Pt Instructions PCP 1 week Discharge Planning: <30 minutes discharge planning Discharge Instructions Discharge Diet: No Restrictions Activity as Tolerated: Yes Discharge Physical Examination Vital Signs Vital Signs Date Time Temp Pulse Resp B/P (MAP) Pulse Ox O2 Delivery O2 Flow Rate FiO2 07/05/22 11:01 36.4 79 18 128/84 (99) 97 Room Air General Appearance: No Apparent Distress, WD/WN, Chronically ill Skin: Other (left arm redness improved and less edema) Neurologic/Psychiatric: Alert, Oriented x3, No Motor/Sensory Deficits, Normal Mood/Affect Allergies: Coded Allergies: No Known Drug Allergies (Unverified , 07/03/22) Discharge Summary Date of Admission Jul 03, 2022 at 21:07 Date of Discharge Discharge Date: Jul 05, 2022 Admission Diagnosis Assessment: Left upper extremity cellulitis severe Plan: IV abx IVF ALICIA Coulter DO Jul 05, 2022 13:25
[2022-07-06] MEDS ORDERED: TROUGH ORDER-PHARMACY XX ONE (12:00)
== END 2022-07-05 13:23 | disposition home or self-care (01) ==
LOC: ER 18:57 → 4TH 21:07 → INTOOBSV 21:07 → UNDOADMOB 21:07 → 4TH 21:51 → UNDODISOB 07-05 14:23
PROVIDERS: ADMIT Internal Medicine; ATTEND Internal Medicine
DX: L03.114 Cellulitis of left upper limb (principal); D72.829 Elevated white blood cell count, unspecified; R74.8 Abnormal levels of other serum enzymes
CPT/HCPCS: 36415; 36600; 71045; 73060; 73090; 76705; 80053; 80074; 80202; 80306; 80320; 81000; 82805; 82977; 83605; 85007; 85025; 85027; 85610; 85730; 87040; 87088; 93005; 96361; 96365; 96366; 96367; 96372; 96376; G0378

== ENCOUNTER → 2022-10-24 | Outpatient (CLI) | payer BC ==
[~2022-10-24] MED LIST: AMOX1TAB12 PO; CATHETER FLUSH 10 ML SYR IVP PRN; CEPH500T PO; MUPI22OI2 TOP; NAPR-915 PO; SULF-221 PO; SULF20OR6
--- NOTE | 2022-10-24 16:07 | Diagnostic Imaging Report ---
INDICATION: Right upper quadrant pain. COMPARISON: Abdominal ultrasound from 07/04/2022. TECHNIQUE: Anterior scintigraphic imaging of the abdomen was performed after the intravenous administration of 5.43 mCi Tc-99m Choletec. FINDINGS: The upper abdomen was imaged for 60 minutes with the gamma camera. There is prompt homogeneous uptake of radiopharmaceutical by the liver. There is activity in the common duct and gallbladder by 15 minutes. Small bowel activity is seen by 50 minutes. After 60 minutes, the patient received 8 oz of ensure by mouth. After 60 minutes, the gallbladder ejection fraction was calculated to be 25% which is low. IMPRESSION: 1. Patent common and cystic bile ducts. 2. Gallbladder dysfunction characterized by low ejection fraction. This can be seen with chronic cholecystitis, gallbladder dyskinesia and other less common etiologies. Dictated by: Dictated on workstation # [id number]
== END ==
LOC: CARD 11:27
PROVIDERS: ATTEND Surgery
DX: R10.11 Right upper quadrant pain (principal); R11.2 Nausea with vomiting, unspecified
CPT/HCPCS: 78227

== ENCOUNTER 2022-11-07 05:33 | Outpatient (CLI) | payer BC ==
[~2022-11-07] VITALS: Ht 172.7 cm; Wt 69.5 kg
[~2022-11-07 05:33] MED LIST changes: -CATHETER FLUSH 10 ML SYR IVP PRN
[2022-11-07] MEDS ORDERED: IBUP100T47 PO (12:27)
[2022-11-07] MEDS ORDERED: ACET325T38 PO (12:27)
== END 2022-11-07 12:32 | disposition home or self-care (01) ==
LOC: PREOP 05:33
PROVIDERS: ATTEND Surgery
DX: Z01.818 Encounter for other preprocedural examination (principal)

== ENCOUNTER 2022-11-14 10:55 | Day surgery (SDC) | payer BC ==
[~2022-11-14] VITALS: Ht 173 cm; Wt 69.5 kg
[2022-11-14] VITALS (10 sets, daily range): BP systolic 120–141; BP diastolic 71–101
[~2022-11-14 10:55] MED LIST changes: +ACET325T38 PO; +IBUP100T47 PO
[2022-11-14] MEDS ORDERED: BUP/EPI 0.5% 1:200,000 (SENSORCAINE) 30 ML VIAL ONE (11:03)
[2022-11-14] MEDS ORDERED: LACTATED RINGERS 1,000 ML IV PRN (11:30)
[2022-11-14] MEDS ORDERED: ceFAZolin INJECTION 2,000 MG in NS (IVPB) 50 ML IV ONE (11:30)
[2022-11-14] MEDS ORDERED: BUP/EPI 0.5% 1:200,000 (SENSORCAINE) 30 ML VIAL INJ ONE (11:30)
--- NOTE | 2022-11-14 11:42 | Progress Note-Pre Operative ---
Pre-Operative Progress Note Date of Available H&P: Nov 14, 2022 Date H&P Reviewed: Nov 14, 2022 Time H&P Reviewed: 11:30 History & Physical: No changes noted Pre-Operative Diagnosis: incarcerated right ing hernia and sx biliary dys MATTIE PEOPLES MD Nov 14, 2022 11:42
[2022-11-14] MEDS ORDERED: oxyCODONE/APAP 5/325MG (PERCOCET 5) TABLET PO PRN (11:45)
[2022-11-14] MEDS ORDERED: ACETAMINOPHEN 325 MG TABLET PO PRN (11:45)
[2022-11-14] MEDS ORDERED: ONDANSETRON 4 MG (ZOFRAN) ORAL DISSOLVE TAB PO PRN (11:45)
[2022-11-14] MEDS ORDERED: HYDR-3817 PO (11:45)
[2022-11-14] MEDS ORDERED: morphine INJ 10 MG/ML 1ML (SYR OR VIAL) IVP PRN ×2 (11:45)
[2022-11-14] MEDS ORDERED: ONDANSETRON 4 MG/2 ML (SDV) Z0FRAN IVP PRN ×3 (11:45→13:30)
--- NOTE | 2022-11-14 11:45 | Discharge Inst-Surgical ---
D/C Lap Instructions-RICHELLE New, Converted, or Re-Newed RX: RX on Chart Follow Up Appt in 2 weeks Activity as tolerated No driving for 24 hours No driving while on pain medications Incentive Spirometry use every 2 hours while awake Regular Diet Symptoms to Report: Fever over 101 degree F, Nausea/Vomiting Infection Signs and Symptoms to report: Increased redness, Foul odor of wound, Increased drainage Bathing instructions: May shower Operative Area Clean/Dry; Keep incision clean/dry If any problems/questions: Contact your physician or go to Emergency Room MATTIE PEOPLES MD Nov 14, 2022 11:45
[2022-11-14] MEDS ORDERED: MIDAZOLAM 2 MG/2 ML (VERSED) VIAL ONE (11:57)
[2022-11-14] MEDS ORDERED: fentaNYL INJ 100 MCG/2 ML AMP ONE (11:57)
[2022-11-14] MEDS ORDERED: proPOfol 200 MG/20 ML (DIPRIVAN) VIAL IV ONE (12:24)
[2022-11-14] MEDS ORDERED: ROCURONIUM 50 MG/5 ML (ZEMURON) VIAL IV ONE ×2 (12:24→12:51)
[2022-11-14] MEDS ORDERED: ONDANSETRON 4 MG/2 ML (SDV) Z0FRAN ONE (12:24)
[2022-11-14] MEDS ORDERED: LIDOCAINE PF 2% 5 ML (XYLOCAINE) VIAL ONE (12:24)
[2022-11-14] MEDS ORDERED: SEVOFLURANE (ULTANE) 15 ML INHAL SOLN ONE (13:10)
--- NOTE | 2022-11-14 13:24 | Anesthesia-General Post-Op ---
General Patient Condition Mental Status/LOC: Same as Preop Cardiovascular: Satisfactory Nausea/Vomiting: Absent Respiratory: Satisfactory Pain: Controlled Complications: Absent Post Op Complications Complications None Follow Up Care/Instructions Patient Instructions None needed. Anesthesia/Patient Condition Patient Condition Patient is doing well, no complaints, stable vital signs, no apparent adverse anesthesia problems. No complications reported per nursing. MARTHA SCHIMTZ CRNA Nov 14, 2022 13:24
[2022-11-14] MEDS ORDERED: morphine INJ 10 MG/ML 1ML (SYR OR VIAL) IVP ONE (13:30)
[2022-11-14] MEDS ORDERED: PROMETHAZINE INJ 25 MG/ML (PHENERGAN) AMP IVP ONE (13:30)
[2022-11-14] MEDS ORDERED: HYDROmorphone 2 MG/ML VIAL (DILAUDID) IV ONE (13:30)
[2022-11-14] MEDS ORDERED: MEPERIDINE (DEMEROL) INJ 50 MG/ML IVP ONE (13:30)
[2022-11-14] MEDS ORDERED: morphine INJ 10 MG/ML 1ML (SYR OR VIAL) ONE (13:37)
--- NOTE | 2022-11-14 15:00 | Progress Note-Post Operative ---
Post-Operative Progess Note Surgeon (s)/Die Set Up Worker (s) Surgeon MATTIE PEOPLES MD Die Set Up Worker: kristel long BRIM SETTER Pre-Operative Diagnosis incarcerated right ing hernia and sx biliary dys Post-Operative Diagnosis same Procedure & Operative Findings Date of Procedure 11/14/22 Procedure Performed/Findings laparoscopic right inguinal hernia repair with mesh, laparoscopic cholecystectomy. Anesthesia Type get Estimated Blood Loss Estimated blood loss (mL): minimal Specimens/Packing Specimens Removed gallbladder MATTIE EPOPLES MD Nov 14, 2022 15:00
--- NOTE | 2022-11-14 18:23 | OPERATIVE REPORT ---
DATE OF SERVICE: 11/14/2022 ATTENDING REGISTERED PHARMACIST: [facility]. PREOPERATIVE DIAGNOSES: Symptomatic reducible right inguinal hernia, symptomatic biliary dyskinesia. POSTOPERATIVE DIAGNOSES: Symptomatic reducible right inguinal hernia, symptomatic biliary dyskinesia. PROCEDURE: Laparoscopic repair of right inguinal hernia with mesh. Laparoscopic cholecystectomy. SURGEON: Dr. Peoples. SOFTWARE TEST SPECIALIST: Diego Estrella APRN ANESTHESIA: General endotracheal. ESTIMATED BLOOD LOSS: Minimal. FINDINGS: Symptomatic reducible right inguinal hernia, symptomatic biliary dyskinesia. DISPOSITION: The patient tolerated the procedure well. INDICATIONS: The patient is a 42-year-old male who we had initially seen several months ago for left upper extremity redness, swelling and pain. He reports that the area began in the elbow region and he thought this was some form of insect bite and then an opening developed with purulent drainage and there was significant edema along the elbow. The patient was evaluated and no compartment syndrome identified and he was instructed to keep the upper extremity elevated and continue with IV antibiotics. During this admission, he also had reported pain in the right inguinal region and he was found to have a reducible, but symptomatic inguinal hernia. He was also having issues with intermittent nausea and vomiting and we had done a HIDA scan, which did show a low ejection fraction of 25% as well as reproduction of symptoms during the administration of the Kinevac analog consistent with symptomatic biliary dyskinesia. DESCRIPTION OF PROCEDURE: The patient was brought to the operating room, laid supine on the table. After adequate IV pain and sedative medications and general endotracheal intubation, the abdomen was prepped and draped in standard surgical fashion. A 0.5% Marcaine with epinephrine was used to anesthetize the overlying skin in the supraumbilical region and a crescent-shaped skin incision was made using a #15 blade. A sharp towel clamp was used to retract the abdominal wall anteriorly and a Veress needle inserted with a low opening pressure of 0 mmHg. The abdomen was then insufflated to 15 mmHg pressure. The Veress needle removed and a 10 mm XL trocar placed followed by a 10 mm 45-degree angle laparoscope visualizing the peritoneal cavity. A 4-quadrant abdominal exploration was performed. There was a right indirect inguinal hernia, no left hernia component. The omentum and small bowel appeared normal. There were adhesions to the fundus of the gallbladder with a normal-appearing liver. Under direct visualization, we then proceeded to place bilateral 5 mm ports under direct visualization after the skin and peritoneal lining were anesthetized using 0.5% Marcaine with epinephrine and a transverse skin incision made using a #15 blade. The patient was then placed in Trendelenburg position and the peritoneal lining was then opened laterally using the Sonicision next to the inguinal ligament and conjoined tendon. We then proceeded medially until Jose Elias's ligament identified. We then proceeded with inferior dissection encompassing the entire hernia sac as well as identifying and preserving the cord and its surrounding contents. A medium size 3DMax polypropylene mesh was then placed into the area of the defect and tacked to Jose Elias's ligament medially with absorbable tacks and to the conjoined tendon laterally. The peritoneal lining was then placed over the mesh and a few absorbable tacks placed to hold this in place. Good hemostasis was observed. We then directed our attention towards the gallbladder and the patient was then placed in reverse Trendelenburg position as well as plane right side up, left side down. A 5 mm port was then placed in the left upper abdominal quadrant under direct visualization. The fundus of the gallbladder was retracted anteriorly and superiorly and the omental adhesions were taken down using blunt dissection. The hepatoduodenal ligament was then dissected using blunt dissection as well as cautery using the hook instrument as well as [place] dissector. The entire critical view of safety was identified including the triangle of Calot as well as the cystic duct and artery as the only two structures going into the gallbladder as well as the cystic plate behind the proximal gallbladder. A timeout was then taken and the cystic duct and artery were then clipped proximally and distally and cut with EndoShears. The gallbladder was then dissected off of the liver bed using cautery on the hook instrument with visualization of good hemostasis as well as no leaking ducts of Luschka. The gallbladder was removed through the 10 mm port site using an EndoCatch bag. The 10 mm port site fascia and peritoneum were then closed under direct visualization using a Gregor-Marcelo device and 0 Vicryl suture. The abdomen was desufflated. The remaining ports were removed. All skin incisions were closed using 4-0 Monocryl running subcuticular sutures. Wounds were then cleaned and covered with Dermabond. The patient tolerated the procedure well. We will start IV and oral pain medication as well as a clear liquid diet. Once he is tolerating clears with good pain control with oral pain medications, ambulating well, we will discharge him home where he will be instructed to do no heavy lifting or exertion for the next 2 weeks and to wear scrotal support for the next 2 weeks as well. Job ID: [id number] DocumentID: [id number] Dictated Date: 11/14/2022 13:16:08 Hat Finisher Date: 11/14/2022 18:20:00 Dictated By: MATTIE PEOPLES MD
== END 2022-11-14 15:01 | disposition home or self-care (01) ==
LOC: SDC 10:55
PROVIDERS: ATTEND Surgery
DX: K40.90 Unilateral inguinal hernia, without obstruction or gangrene, not specified as recurrent (principal); K81.1 Chronic cholecystitis; K82.8 Other specified diseases of gallbladder; K66.0 Peritoneal adhesions (postprocedural) (postinfection); Z28.310 Unvaccinated for COVID-19
CPT/HCPCS: 87081; 88304